=== PATIENT | female | born 1990 | race American Indian/Alaskan Native ===

== ENCOUNTER 2016-10-31 21:05 | Outpatient (CLI) | payer MEDICAID ==
[2016-10-31 23:29] VITALS: BP 103/58
[2016-10-31] MEDS ORDERED: LACTATED RINGERS 1,000 ML ONE (23:40)
[2016-10-31] MEDS ORDERED: LACTATED RINGERS 500 ML IV ONE (23:42)
[2016-11-01] MEDS ORDERED: BENADRYL IV ONE (00:04)
[2016-11-01 00:33] LABS: Bilirubin,Urine NEG (Negative); Blood,Urine NEG (Negative); Ketones,Urine 80 mg/dL (Negative); Leukocyte Esterase,Urine NEG (Negative); Mucus,Urine 2+ /HPF; Nitrite,Urine NEG (Negative); Protein,Urine <15 mg/dL mg/dL (Negative); Urobilinogen,Urine < 2.0 mg/dL (<2.0)
== END 2016-11-01 01:40 | disposition home or self-care (01) ==
LOC: TRG 21:05
PROVIDERS: ATTEND Obstetrics & Gynecology
DX: Z34.82 Encounter for supervision of other normal pregnancy, second trimester (principal); R10.9 Unspecified abdominal pain; L29.9 Pruritus, unspecified; Z3A.26 26 weeks gestation of pregnancy
CPT/HCPCS: 59025; 81001; 96360; J1200; J7120

== ENCOUNTER 2017-01-03 12:33 | Outpatient (CLI) | payer MEDICAID ==
[2017-01-03 13:18] VITALS: BP 121/74
[2017-01-03] MEDS ORDERED: LACTATED RINGERS 500 ML IV ONE (14:00)
[2017-01-03 15:08] LABS: Urine Drugs of Abuse Note Disclamer
[2017-01-03 15:38] LABS: Bacteria,Urine 1+ /HPF (Negative); Bilirubin,Urine NEG (Negative); Blood,Urine SM (Negative); Ketones,Urine NEG (Negative); Leukocyte Esterase,Urine NEG (Negative); Mucus,Urine FEW /HPF; Nitrite,Urine NEG (Negative); Protein,Urine <15 mg/dL mg/dL (Negative); Urobilinogen,Urine < 2.0 mg/dL (<2.0); WBC,Urine < 1.0 /HPF (0.0-6.0)
[2017-01-03] MEDS ORDERED: LACTATED RINGERS 1,000 ML ONE (16:36)
== END 2017-01-03 17:38 | disposition home or self-care (01) ==
LOC: TRG 12:33
PROVIDERS: ATTEND Obstetrics & Gynecology
DX: O47.03 False labor before 37 completed weeks of gestation, third trimester (principal); Z3A.32 32 weeks gestation of pregnancy
CPT/HCPCS: 59025; 80307; 81001; 87086; 96360; 96361; J7120

== ENCOUNTER 2017-02-24 09:53 | Inpatient (IN) | payer MEDICAID ==
--- NOTE | 2017-02-17 13:41 | History and Physical Report ---
History of Present Illness Date of examination: 02/17/17 Date of admission: 02/24/17 Chief complaint: repeat cs History of present illness: Pt here for repeat c/s. All risk, benefits and alternatives were d/w pt and questions were addressed and answered. Consents were signed and placed on the chart. OB Intake Ethnicity: Vital Signs Height: 62 in. Weight (lb): 179 BMI: 32.8 Pre- Weight: 179 BP: 112/ 68 mm Hg Ur. Protein: Negative Ur. Glucose: Negative Chief Complaint/Current Status: c/o missed period.................igarcia lmp 05/24/2016 Menstrual History Regularity: regular Menses every: 28 days Duration: 5 LMP: 05/24/2016 LMP reliability: definite LMP character: normal test type: urine test Date: 07/20/2016 BC at conception: none Planned ? no EDC Calculations LMP: 02/28/2017 EDC Confirmation: 02/28/2017 Gestational Age: 8 1/7 weeks Past History : 3 Term Births: 2 Premature Births: 0 Living Children: 2 Para: 2 Mult. Births: 0 Prev : 2 Prev. attempt? 0 Aborta: 0 Elect. Ab: 0 Spont. 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 of genital herpes: no Genetic History Congenital Heart Defect: Mom: no Dad: no Arnel Disease: Mom: no Dad: no Thalassemia Mom: no Dad: no Neural Tube Defect Mom: no Dad: no Down's Syndrome Mom: no Dad: no Toan-Sachs Mom: no Dad: no Sickle Cell Disease/Trait Mom: no Dad: no Hemophilia Mom: no Dad: no Muscular Dystrophy Mom: no Dad: no Cystic Fibrosis Mom: no Dad: no Vinod Chorea Mom: no Dad: no Mental Retardation Mom: no Dad: no Fragile X Mom: no Dad: no Other Genetic/Chromosomal Disorder Mom: no Dad: no Child w/other defect Mom: no Dad: no Active Medications (reviewed today): FORMULA 27-1 MG ORAL TABS ( VIT-FE FUMARATE-FA) 1 po q day as directed Current Allergies (reviewed today): No known allergies Past History Past Medical History: other (see hpi) Past Surgical History: other (see hpi) 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) Social history: other (see hpi) - Obstetrical History Expected Date of Delivery: 02/28/17 Actual Gestation: 39 Week(s) 3 Day(s) : 3 Para: 2 Medications and Allergies Allergies Allergy/AdvReac Type Severity Reaction Status Date / Time codeine Allergy Hives Verified 01/03/17 13:20 metronidazole [From Flagyl] Allergy Hives Verified 02/15/16 00:58 Home Medications Medication Instructions Recorded Confirmed Last Taken Type Vit No.130/Iron/FA 1 each PO DAILY 01/03/17 01/03/17 1 Day Ago History [ Tablet] Review of Systems All systems: negative - Physical Exam Cardiovascular: Normal S1, Normal S2 Lungs: Positive: Clear to auscultation, Normal air movement Abdomen: Positive: normal appearance, soft. Negative: distention, tenderness, guarding Genitourinary (Female): Positive: other (deferred) - Obstetrical FHR: auscultation normal Results All other labs normal. Assessment and Plan - Patient Problems (1) 39 weeks gestation of Status: Acute (2) Previous delivery affecting Status: Acute Plan to address problem: -admit and prepare for c/s -consents signed and placed on the chart
[~2017-02-24 09:53] MED LIST: BICITRA PO ONE; LACTATED RINGERS 1,000 ML IV SCH; PITOCin/NS 20 UNIT/1000ML DRIP 20 UNITS/1,000 ML BAG IV SCH
[2017-02-24] MEDS ORDERED: REGLAN IV ONE (10:30)
[2017-02-24] MEDS ORDERED: PEPCID IV ONE (10:30)
[2017-02-24] MEDS ORDERED: ANCEF/STERILE WATER 2 GM/20 ML 2 GM/20 ML SYRINGE IV NR (10:30)
[2017-02-24 10:46] LABS: Basophils % (Auto) 0.3 % (0.0-1.8); Eosinophils % (Auto) 0.5 % (0.0-4.3); Hematocrit 31.8 % (30.3-42.9); Hemoglobin 10.2 gm/dl (10.1-14.3); Mean Corpuscular HGB Conc 32 % (30-34); Mean Corpuscular Volume 73 fl (79-97); Platelet Count 302 K/mm3 (140-440); Red Blood Count 4.34 M/mm3 (3.65-5.03)
[2017-02-24] MEDS ORDERED: BICITRA ONE (10:46)
[2017-02-24] MEDS ORDERED: LACTATED RINGERS 1,000 ML ONE (10:46)
[2017-02-24 10:48] LABS: Mean Corpuscular Hemoglobin 23 pg (28-32)
[2017-02-24] MEDS ORDERED: LACTATED RINGERS 1,000 ML IV SCH (11:00)
[2017-02-24] MEDS ORDERED: BICITRA PO ONE (11:00)
--- NOTE | 2017-02-24 11:28 | Anesthesia Consultation ---
Anesthesia Consult and Med Hx Date of service: 02/24/17 - Airway Anesthetic Teeth Evaluation: Good ROM Head & Neck: Adequate Mental/Hyoid Distance: Adequate Mallampati Class: Class II Intubation Access Assessment: Probably Good - Pre-Operative Health Status ASA Pre-Surgery Classification: ASA2 Proposed Anesthetic Plan: Epidural, Spinal - Pulmonary Hx Asthma: No COPD: No Hx Pneumonia: No - Cardiovascular System Hx Hypertension: No Hx Heart Attack/AMI: No Hx Pacemaker: No Hx Internal Defibrillator: No - Central Nervous System Hx Seizures: No Hx Psychiatric Problems: No - Endocrine Hx Renal Disease: No Hx End Stage Renal Disease: No Hx Liver Disease: No Hx Hypothyroidism: No Hx Hyperthyroidism: No - Hematic Hx Anemia: No Hx Sickle Cell Disease: No - Other Systems Hx Alcohol Use: No
--- NOTE | 2017-02-24 11:29 | Anesthesia Day of Surgery ---
Anesthesia Day of Surgery - Day of Surgery Patient Examined: Yes Patient H&P Reviewed: Yes Patient is NPO: Yes
[2017-02-24] MEDS ORDERED: MORPHINE ONE (11:33)
[2017-02-24] MEDS ORDERED: WATER FOR IRRIG STERILE IR ONE (11:50)
[2017-02-24] MEDS ORDERED: NACL 0.9% IR ONE (11:50)
[2017-02-24] MEDS ORDERED: ePHEDrine SULFATE ONE (11:56)
[2017-02-24] MEDS ORDERED: BENADRYL IV PRN (12:00)
[2017-02-24] MEDS ORDERED: ZOFRAN IV PRN (12:00)
[2017-02-24] MEDS ORDERED: NARCAN 0.4 MG/1 ML IV PRN (12:00)
[2017-02-24] MEDS ORDERED: NACL 0.9% 1000 ML 1,000 ML ONE (12:03)
[2017-02-24] MEDS ORDERED: ZOFRAN ONE (12:21)
[2017-02-24] MEDS ORDERED: DILAUDID IV PRN (12:30)
[2017-02-24] MEDS ORDERED: PHENERGAN PO PRN (12:30)
[2017-02-24] MEDS ORDERED: PHENERGAN PR PRN (12:30)
[2017-02-24] MEDS ORDERED: SODIUM CHLORIDE FLUSH SYRINGE 10 ML IV PRN (12:30)
--- NOTE | 2017-02-24 12:51 | Operative Report ---
Operative Report Operative Report: Date of procedure: 02/24/2017 Pre-operative diagnosis: 39 weeks gestation Previous section 2 Post-operative diagnosis: Same Procedure name(s): Repeat low transverse section via Pfannenstiel skin incision Surgeon: Dr. Rivers Art Psychotherapist Or Therapist: Layne VICK Roland Anesthesia: Combined spinal epidural EBL: 500 mL Urine output: 250 mL of clear urine Fluids: 1300 mL Findings: Liveborn female Apgars of 8 and 8 at one and 5 minutes weight 6 lbs. 0 oz. Grossly normal fallopian tubes and ovaries bilaterally Minimal scar tissue noted from previous section Indications: Patient presents for scheduled repeat section. All risk benefits and alternatives were discussed with the patient. Consents were signed and placed on the chart. Procedure: Patient was taking to the operating room. Patient was then prepped and draped in sterile fashion after anesthesia was found to be adequate. A low transverse skin incision was made with the scalpel through previous incisional scar and carried down to the underlying layer of fascia with the Bovie. The fascia was then incised in the midline and this incision was extended bilaterally with the Bovie. The superior aspect of the fascia was grasped with Carmelo clamps tented upward and dissected off of the anterior rectus muscles with the scalpel. In similar fashion the inferior aspect of the fascia was grasped with Carmelo clamps tented upward and dissected off of the anterior rectus muscles. The rectus muscles were then bluntly divided in the midline. The peritoneum was identified and entered into sharply. The bladder blade was replaced. A lower transverse uterine incision was made with the scalpel and extended bilaterally with the bandage scissors. Artificial rupture of membranes was performed yielding clear amniotic fluid. The 's head was then delivered atraumatically. The anterior shoulder and rest of delivered without difficulty. There was a nuchal cord 1 was easily reduced. The umbilical cord was clamped x2. The cord was cut. The was then placed in sterile bassinet. Cord blood was collected The placenta was manually extracted in its entirety. The uterus was exteriorized and cleared of all clots and debris. The uterine incision was closed using 0 Vicryl in a running locking fashion. A second imbricating layer of the same suture was then created. The posterior cul-de-sac was copiously irrigated. The uterus was returned to the abdomen. Tisseel was placed along the uterine incision with excellent hemostasis noted. The gutters were also irrigated. The anterior rectus muscles were reapproximated using 3-0 Vicryl. The anterior rectus fascia was reapproximated using 0 Vicryl in a running fashion. The subcuticular fat was reapproximated using 2-0 Vicryl in a running fashion. The skin was reapproximated with 4-0 Monocryl with a subcuticular stitch. The patient tolerated the procedure well. Sponge lap and needle counts were all correct x3. Patient was taken to the recovery room awake and in stable condition.
[2017-02-24] MEDS ORDERED: MYLICON PO PRN (12:53)
[2017-02-24] MEDS ORDERED: LANSINOH TP PRN (12:53)
[2017-02-24] MEDS ORDERED: NORCO 5/325 PO PRN (12:53)
[2017-02-24] MEDS ORDERED: BENADRYL IV ONE (16:14)
[2017-02-24] MEDS ORDERED: D5LR 1,000 ML IV SCH (19:00)
[2017-02-24] MEDS: ANCEF/NS 1 GM/50 ML 1 GM/50 ML BAG IV SCH (19:57)
[2017-02-24] MEDS ORDERED: BENADRYL PO NR (21:00)
--- NOTE | 2017-02-24 22:44 | Post Anesthesia Evaluation ---
- Post Anesthesia Evaluation Patient Participated: Yes Airway Patent: Yes Stable Respiratory Function: Yes Temp > 96.8F: Yes Pain Manageable: Yes Adequeate Hydration: Yes Anesthesia Complications: No Block Receding Appropriately: Yes
[2017-02-25 02:12] LABS: Hematocrit 28.1 % (30.3-42.9); Hemoglobin 9.2 gm/dl (10.1-14.3)
[2017-02-25] MEDS: ANCEF/NS 1 GM/50 ML 1 GM/50 ML BAG IV SCH (03:31)
[2017-02-25] MEDS: MOTRIN PO PRN ×4 (03:40→21:50)
[2017-02-25] MEDS ORDERED: BENADRYL PO PRN (05:26)
--- NOTE | 2017-02-25 05:54 | Event Note ---
Date: 02/25/17 (called by RN on PP) pt states [place] is not working Asked for Percocet by name. Question codeine allergy. Pt again requested Percocet. Order in chart
[2017-02-25] MEDS ORDERED: BOOSTRIX IM ONE (06:00)
--- NOTE | 2017-02-25 08:00 | Progress Note ---
Assessment and Plan Patient doing well, reports pain well controlled with po meds. Lochia scant, incision D&I, VSSAF, H&H 9.2/28.1 (asymptomatic, anemia d/t blood loss acute). Continue current postop pathway, anticipate d/c home tomorrow if stable. - Patient Problems (1) Anemia due to acute blood loss Current Visit: Yes Status: Acute Plan to address problem: Asymptomatic Continue PNV (2) delivery delivered Current Visit: Yes Status: Acute Subjective - Subjective Date of service: 02/25/17 Principal diagnosis: postop day #1 s/p repeat c/s Patient reports: appetite normal, voiding normally, pain well controlled, ambulating normally, no dizzy ambulation, no flatus, no nauseated [place]: doing well, nursing well Objective - Vital Signs Latest vital signs: Vital Signs Temp Pulse Resp BP BP 02/25/17 06:51 98.3 F 90 24 115/60 02/25/17 04:04 98.5 F 87 24 116/65 02/25/17 03:40 18 02/24/17 23:13 98.8 F 86 24 116/63 02/24/17 20:04 18 02/24/17 16:46 97.8 F 83 20 140/78 02/24/17 12:59 97.7 F 02/24/17 12:33 119 H 96/65 02/24/17 10:23 98.2 F 88 16 02/24/17 10:08 102 H 122/76 Intake and Output 02/24/17 02/25/17 02/25/17 22:59 06:59 14:59 Intake Total 50 960 Output Total 900 Balance 50 60 Intake: IV 50 ANCEF/NS 1 GM/50 ML 1 gm 50 In 50 ml @ 100 mls/hr IV Q8H [facility] Rx#:[id number] Oral 960 Output: Urine 900 Void 900 Other: Total, Intake Amount 720 Total, Output Amount 900 # Voids Void 1 - Exam Breasts: Present: normal, Cardiovascular: Present: Regular rate Lungs: Present: Clear to auscultation, Normal air movement Abdomen: Present: normal appearance, soft Uterus: Present: normal, firm, fundal height at umbilicus Extremities: Present: normal Incision: Present: normal, dry, intact - Labs Labs: Abnormal lab results 02/24/17 02/25/17 Range/Units 10:00 00:38 Hgb 9.2 L (10.1-14.3) gm/dl Hct 28.1 L (30.3-42.9) % MCV 73 L (79-97) fl MCH 23 L (28-32) pg RDW 16.0 H (13.2-15.2) % [place] % (Auto) 8.4 H (0.0-7.3) %
[2017-02-25] MEDS: PERCOCET 5/325 PO PRN ×3 (09:40→21:51)
[2017-02-25] MEDS: MILK OF MAGNESIA PO PRN (12:49)
[2017-02-25] MEDS: FEOSOL PO SCH (12:49)
--- NOTE | 2017-02-25 13:14 | Progress Note ---
Subjective Date of service: 02/25/17 Principal diagnosis: postop day #1 s/p repeat c/s Interval history: patient resting comfortably in bed. up ambulating. no anesthetic complications noted. Objective - Constitutional Vitals: Vital Signs - 12hr 02/25/17 02/25/17 02/25/17 03:40 04:04 06:51 Temperature 98.5 F 98.3 F Pulse Rate 87 90 Respiratory 18 24 24 Rate Blood Pressure 116/65 115/60 [Right] 02/25/17 08:00 Temperature 98.1 F Pulse Rate 67 Respiratory 18 Rate Blood Pressure 101/58 [Right] - Labs CBC & Chem 7: 02/25/17 00:38 Labs: Abnormal lab results 02/25/17 Range/Units 00:38 Hgb 9.2 L (10.1-14.3) gm/dl Hct 28.1 L (30.3-42.9) %
[2017-02-26] MEDS: MOTRIN PO PRN ×3 (08:05→23:57)
[2017-02-26] MEDS: FEOSOL PO SCH (08:06)
[2017-02-26] MEDS: PERCOCET 5/325 PO PRN ×3 (08:09→23:57)
--- NOTE | 2017-02-26 08:09 | Progress Note ---
Assessment and Plan - Patient Problems (1) delivery delivered Onset Date: 02/24/17 Current Visit: Yes Status: Acute Plan to address problem: pt w/o complaint resting feeding NB VSS FF below umb Lochia small Incision D&I H &H 06/02 drop r/t blood loss from surgery Pt w/o s/sx of anemia. Doing well s/p repeat c/s P: continue pathway Adv as tolerated Plan d/c tomorrow Subjective - Subjective Date of service: 02/26/17 (pt w/o complaint) Principal diagnosis: postop day #2 s/p repeat c/s Patient reports: appetite normal, voiding normally, pain well controlled, ambulating normally Owen: doing well (bili lights) Objective - Vital Signs Latest vital signs: Vital Signs Temp Pulse Resp BP 02/26/17 00:00 97.9 F 74 18 110/63 02/25/17 16:45 97.9 F 83 20 123/73 02/25/17 12:25 98.2 F 93 H 20 112/72 Intake and Output 02/25/17 02/26/17 02/26/17 22:59 06:59 14:59 Intake Total 480 Output Total 600 Balance -120 Intake: Oral 480 Output: Urine 600 Void 600 Other: Total, Intake Amount 480 Total, Output Amount 600 Voiding Method Toilet - Exam Breasts: Present: normal Cardiovascular: Present: Regular rate Lungs: Present: Clear to auscultation Abdomen: Present: normal appearance, soft, normal bowel sounds Vulva: both: normal Uterus: Present: normal, firm, fundal height below umbilicus Extremities: Present: normal Deep Tendon Reflex Grade: Normal +2 Incision: Present: dry, intact
[2017-02-26] MEDS ORDERED: ZOFRAN ODT PO PRN (10:06)
[2017-02-27] MEDS: PERCOCET 5/325 PO PRN (06:35)
[2017-02-27] MEDS: MOTRIN PO PRN ×2 (06:35→12:02)
[2017-02-27] MEDS: MILK OF MAGNESIA PO PRN (08:25)
[2017-02-27] MEDS: FEOSOL PO SCH (08:25)
--- NOTE | 2017-02-27 09:10 | Discharge Summary ---
Providers - Providers Date of Admission: 02/24/17 09:53 Date of discharge: 02/27/17 (pt agrees with d/c) Attending physician: GABRIEL ALVAREZ Primary care physician: GABRIEL ALVAREZ Hospitalization Reason for admission: section Delivery: Procedure: repeat low transverse Episiotomy: none Laceration: none Incision: normal, dry, intact Other procedures: none complications: none Discharge diagnosis: IUP at term delivered [place] baby: female Hospital course: uncomplicated repeat section Pt w/o complaint VSS FF below umb Lochia scant Incision D&I Pt is asymptomatic anemia. Doing well s/p section. P: d/c today with instructions RTO 1 week postop care. Condition at discharge: Good Disposition: DC-01 TO HOME OR SELFCARE - Discharge Diagnoses (1) delivery delivered Status: Acute Comment: rto 1 week postop care Plan - Discharge Medications Prescriptions: Docusate Sodium [Colace] 100 mg PO BID PRN #60 capsule PRN Reason: Constipation Ferrous Sulfate [Feosol 325 MG tab] 325 mg PO QDAY #30 tablet Ibuprofen [Motrin 800 MG tab] 800 mg PO Q8HR PRN #30 tablet PRN Reason: Pain Lidocain2.5%/Prilocai2.5% [Emla] 2 gm TP ONCE #1 tube oxyCODONE /ACETAMINOPHEN [Percocet 5/325] 1 tab PO Q4HR #30 tab - Provider Discharge Summary Activity: routine, no sex for 6 weeks, no heavy lifting 4 weeks, no strenuous exercise Diet: routine Instructions: routine Additional instructions: [] Smoking cessation referral if applicable(refer to patient education folder for contact #) [] Refer to [facility] Booklet Call your doctor immediately for: * Fever > 100.5 * Heavy vaginal bleeding ( >1 pad per hour) * Severe persistent headache * Shortness of breath * Reddened, hot, painful area to leg or breast * Drainage or odor from incision. * Keep incision clean and dry at all times and follow doctor's instructions regarding bathing/showering - Follow up plan Follow up: GABRIEL ALVAREZ MD [Primary Care Provider] - 7 Days (Congratulations! Please call [phone] to schedule your postoperative visit in 1 week. Take medications as prescribed. Call with concerns.)
[2017-02-27 14:36] VITALS: BP 118/86
== END 2017-02-27 13:20 | disposition home or self-care (01) | DRG 765 ==
LOC: APU 09:53 → OB 14:21
PROVIDERS: ADMIT Obstetrics & Gynecology; ATTEND Obstetrics & Gynecology
PROC: 10D00Z1 Extraction of Products of Conception, Low, Open Approach (ICD-10-PCS; 2017-02-24)
PROC: 10907ZC Drainage of Amniotic Fluid, Therapeutic from Products of Conception, Via Natural or Artificial Opening (ICD-10-PCS; 2017-02-24)
PROC: 3E0234Z Introduction of Serum, Toxoid and Vaccine into Muscle, Percutaneous Approach (ICD-10-PCS; principal; 2017-02-25)
DX: O34.211 Maternal care for low transverse scar from previous cesarean delivery (principal); D62 Acute posthemorrhagic anemia; Z3A.39 39 weeks gestation of pregnancy; O99.02 Anemia complicating childbirth; O69.81X0 Labor and delivery complicated by cord around neck, without compression, not applicable or unspecified; Z88.5 Allergy status to narcotic agent; Z23 Encounter for immunization; Z37.0 Single live birth; Z88.8 Allergy status to other drugs, medicaments and biological substances
CPT/HCPCS: 36415; 85014; 85018; 85025; 86850; 86900; 86901; 99211; A6250; C9250; G0463; J0690; J1200; J2270; J2405; J2590; J2765; J7030; J7120; J7121; Q0162

== ENCOUNTER 2017-03-29 04:03 | Emergency (ER) | payer MEDICAID ==
[2017-03-29 04:21] VITALS: BP 155/101
[2017-03-29 04:43] LABS: Basophils % (Auto) 0.4 % (0.0-1.8); Eosinophils % (Auto) 1.8 % (0.0-4.3); Hematocrit 33.1 % (30.3-42.9); Hemoglobin 10.9 gm/dl (10.1-14.3); Mean Corpuscular HGB Conc 33 % (30-34); Mean Corpuscular Volume 74 fl (79-97); Platelet Count 290 K/mm3 (140-440); Red Blood Count 4.47 M/mm3 (3.65-5.03); White Blood Count 10.1 K/mm3 (4.5-11.0)
[2017-03-29 04:48] LABS: Mean Corpuscular Hemoglobin 24 pg (28-32)
[2017-03-29 05:03] LABS: Anion Gap 17 mmol/L; BUN/Creatinine Ratio 17.14; Blood Urea Nitrogen 12 mg/dL (7-17); Calcium 8.5 mg/dL (8.4-10.2); Carbon Dioxide 25 mmol/L (22-30); Chloride 100.8 mmol/L (98-107); Glucose 95 mg/dL (65-100); Potassium 3.8 mmol/L (3.6-5.0); Sodium 139 mmol/L (137-145)
== END 2017-03-29 04:50 | disposition left against medical advice (07) ==
LOC: ED 04:03
DX: R07.89 Other chest pain (principal); Z53.21 Procedure and treatment not carried out due to patient leaving prior to being seen by health care provider
CPT/HCPCS: 36415; 80048; 84484; 85025; 93005; 93010

== ENCOUNTER 2017-03-29 13:43 | Emergency (ER) | payer MEDICAID ==
[2017-03-29 13:56] VITALS: BP 130/85
[2017-03-29 14:30] LABS: Basophils % (Auto) 0.1 % (0.0-1.8); Eosinophils % (Auto) 2.1 % (0.0-4.3); Hemoglobin 10.7 gm/dl (10.1-14.3); Mean Corpuscular HGB Conc 32 % (30-34); Mean Corpuscular Volume 75 fl (79-97); Platelet Count 302 K/mm3 (140-440); Red Blood Count 4.52 M/mm3 (3.65-5.03); Red Cell Distribution Width 17.6 % (13.2-15.2); White Blood Count 8.7 K/mm3 (4.5-11.0)
[2017-03-29 14:39] LABS: INR 1.03 (0.87-1.13)
[2017-03-29 14:45] LABS: Mean Corpuscular Hemoglobin 24 pg (28-32)
[2017-03-29 14:46] LABS: Anion Gap 18 mmol/L; Blood Urea Nitrogen 11 mg/dL (7-17); Calcium 8.8 mg/dL (8.4-10.2); Carbon Dioxide 26 mmol/L (22-30); Glucose 97 mg/dL (65-100); Potassium 3.7 mmol/L (3.6-5.0); Sodium 142 mmol/L (137-145)
[2017-03-29 14:49] LABS: Partial Thromboplastin Time 31.5 Sec. (24.2-36.6)
--- NOTE | 2017-03-29 16:26 | Emergency Department Report ---
Chief Complaint: Chest Pain Stated Complaint: CHEST PAINS/NUMBNESS IN ARM/NECK/JAW/SOB Time Seen by Provider: 03/29/17 16:23 - HPI History of Present Illness: PT c/o chest pain, onset last night. PT states she started having chest pain last night. PT states she is 3 weeks and she breast feeding. - ROS Review of Systems: - fever -chill - n/v - breast pain - Exam Vital Signs: Vital Signs 03/29/17 13:53 Temperature 98.7 F Pulse Rate 88 Respiratory 18 Rate Blood Pressure 130/85 O2 Sat by Pulse 100 Oximetry Physical Exam: PT looks well, non toxic. steady gait gcs 15 chest wall non tender rrr MSE screening note: Focused history and physical exam performed. Due to findings the following was ordered: cxr ED Medical Decision Making - Lab Data Result diagrams: 03/29/17 14:15 03/29/17 14:15 ED Disposition for MSE Condition: Stable Referrals: PRIMARY CARE, [Primary Care Provider] - 3-5 Days
--- NOTE | 2017-03-29 17:53 | Emergency Department Report ---
ED Chest Pain HPI - General Chief Complaint: Chest Pain Stated Complaint: CHEST PAINS/NUMBNESS IN ARM/NECK/JAW/SOB Time Seen by Provider: 03/29/17 16:23 Source: patient Mode of arrival: Ambulatory Limitations: No Limitations - History of Present Illness Initial Comments: Patient is exposed . That she started having left-sided chest pain sharp in nature that increases with movement. Denies shortness of breath or cough MD Complaint: chest pain -: Last night Onset: during rest Pain Location: left chest Severity: moderate Quality: sharp Consistency: intermittent Improves With: nothing Worsens With: movement re: denies: nausea, vomting, dyspnea Other Symptoms: denies: cough, fever - Related Data Home Medications Medication Instructions Recorded Confirmed Last Taken Vit No.130/Iron/FA 1 each PO DAILY 01/03/17 02/25/17 1 Day Ago [ Tablet] Previous Rx's Medication Instructions Recorded Last Taken Type Docusate Sodium [Colace] 100 mg PO BID PRN #60 capsule 02/24/17 Unknown Rx Ferrous Sulfate [Feosol 325 MG tab] 325 mg PO QDAY #30 tablet 02/24/17 Unknown Rx Ibuprofen [Motrin 800 MG tab] 800 mg PO Q8HR PRN #30 tablet 02/24/17 Unknown Rx Lidocain2.5%/Prilocai2.5% [Emla] 2 gm TP ONCE #1 tube 02/24/17 Unknown Rx oxyCODONE /ACETAMINOPHEN [Percocet 1 tab PO Q4HR #30 tab 02/24/17 Unknown Rx 5/325] Naproxen [Naprosyn] 500 mg PO BID #14 tablet 03/29/17 Unknown Rx Allergies Allergy/AdvReac Type Severity Reaction Status Date / Time codeine Allergy Hives Verified 01/03/17 13:20 metronidazole [From Flagyl] Allergy Hives Verified 02/15/16 00:58 Heart Score - HEART Score History: Slightly suspicious EKG: Non-specific Age: < 45 Risk factors: No known risk factors Troponin: < normal limit HEART Score: 1 - Critical Actions Critical Actions: 0-3 pts:0.9-1.7%risk of adverse cardiac event.Candidate for discharge ED Review of Systems ROS: Stated complaint: CHEST PAINS/NUMBNESS IN ARM/NECK/JAW/SOB Other details as noted in HPI Comment: All other systems reviewed and negative Constitutional: denies: chills, fever Respiratory: denies: cough, shortness of breath, SOB with exertion Cardiovascular: chest pain. denies: palpitations, edema, paroxysmal nocturnal dyspnea Gastrointestinal: denies: abdominal pain Neurological: denies: headache, numbness ED Past Medical Hx - Past Medical History Previous Medical History?: Yes Hx Hypertension: No Hx CVA: No Hx Heart Attack/AMI: No Hx Congestive Heart Failure: No Hx Diabetes: No Hx Deep Vein Thrombosis: No Hx Pulmonary Embolism: No Hx GERD: No Hx Liver Disease: No Hx Renal Disease: No Hx Sickle Cell Disease: No Hx Arthritis: No Hx Headaches / Migraines: No Hx Seizures: No Hx Kidney Stones: No Hx Psychiatric Treatment: No Hx Asthma: No Hx COPD: No Hx Tuberculosis: No Hx Dementia: No Hx HIV: No - Surgical History Past Surgical History?: Yes Hx Coronary Stent: No Hx Open Heart Surgery: No Hx Pacemaker: No Hx Internal Defibrillator: No Hx Cholecystectomy: No Hx Appendectomy: No Hx Breast Surgery: No Additional Surgical History: x3 - Social History Smoking Status: Never Smoker Substance Use Type: None - Medications Home Medications: Home Medications Medication Instructions Recorded Confirmed Last Taken Type Vit No.130/Iron/FA 1 each PO DAILY 01/03/17 02/25/17 1 Day Ago History [ Tablet] Docusate Sodium [Colace] 100 mg PO BID PRN #60 capsule 02/24/17 Unknown Rx Ferrous Sulfate [Feosol 325 MG tab] 325 mg PO QDAY #30 tablet 02/24/17 Unknown Rx Ibuprofen [Motrin 800 MG tab] 800 mg PO Q8HR PRN #30 tablet 02/24/17 Unknown Rx Lidocain2.5%/Prilocai2.5% [Emla] 2 gm TP ONCE #1 tube 02/24/17 Unknown Rx oxyCODONE /ACETAMINOPHEN [Percocet 1 tab PO Q4HR #30 tab 02/24/17 Unknown Rx 5/325] Naproxen [Naprosyn] 500 mg PO BID #14 tablet 03/29/17 Unknown Rx ED Physical Exam - General Limitations: No Limitations General appearance: alert, in no apparent distress - ENT ENT exam: Present: normal exam - Neck Neck exam: Present: normal inspection. Absent: tenderness, lymphadenopathy, thyromegaly - Respiratory Respiratory exam: Present: normal lung sounds bilaterally, chest wall tenderness (left upper chest tenderness). Absent: respiratory distress, wheezes , rales, rhonchi - Cardiovascular Cardiovascular Exam: Present: regular rate, normal rhythm, normal heart sounds - GI/Abdominal GI/Abdominal exam: Present: soft. Absent: distended, tenderness, guarding, rebound - Neurological Exam Neurological exam: Present: alert, oriented X3, CN II-XII intact - Skin Skin exam: Present: warm, intact ED Course Vital Signs 03/29/17 13:53 Temperature 98.7 F Pulse Rate 88 Respiratory 18 Rate Blood Pressure 130/85 O2 Sat by Pulse 100 Oximetry - Reevaluation(s) Reevaluation #1: 03/29/17 18:54 Patient stated that she is doing much better and she is ready to go home she does not have any chest pain at this moment. ED Medical Decision Making - Lab Data Result diagrams: 03/29/17 14:15 03/29/17 14:15 Critical care attestation.: If time is entered above; I have spent that time in minutes in the direct care of this critically ill patient, excluding procedure time. ED Disposition Clinical Impression: Atypical chest pain, Costochondritis, acute Disposition: DC-01 TO HOME OR SELFCARE Is pt being admited?: No Does the pt Need Aspirin: No Condition: Stable Instructions: Chest Pain (ED) Prescriptions: Naproxen [Naprosyn] 500 mg PO BID #14 tablet Referrals: PRIMARY CARE, [Primary Care Provider] - 3-5 Days
--- NOTE | 2017-03-30 07:34 | XRay Report ---
ROUTINE CHEST, TWO VIEWS: HISTORY: chest pain. The trachea, heart, mediastinal contour, lung mcdonald and bony thorax are unremarkable. IMPRESSION: Unremarkable chest x-ray.
== END 2017-03-29 19:33 | disposition home or self-care (01) ==
LOC: ED 13:43
DX: M94.0 Chondrocostal junction syndrome [Tietze] (principal); R07.89 Other chest pain; Z88.5 Allergy status to narcotic agent; Z88.8 Allergy status to other drugs, medicaments and biological substances
CPT/HCPCS: 36415; 71020; 80048; 83880; 84484; 85025; 85610; 85730; 93005; 93010

== ENCOUNTER 2018-04-28 06:22 | Emergency (ER) | payer MEDICAID ==
--- NOTE | 2018-04-28 07:06 | Emergency Department Report ---
ED Female HPI - General Chief complaint: Abdominal Pain Stated complaint: POSS MISCARRIAGE Time Seen by Provider: 04/28/18 06:56 Source: patient Mode of arrival: Stretcher Limitations: No Limitations - History of Present Illness Initial comments: Patient is a 28-year-old female presents emergency room with complaints of abdominal pain, pelvic pain, vaginal bleeding and passing of clots and tissue. Patient states she is 11 weeks and received a call from her DOUGHMAKER that her ultrasound shows having a miscarriage. Patient's DOUGHMAKER gave her an pill which has caused her to have intense pain at 10 out of 10. Patient states she went last night to [facility] and had an ultrasound which showed retained products of conception. Patient was given was given Percocets by the ER, however patient is still having a 10 out of 10 pain even with the Percocet on board. Patient states she is not able to do anything to reduce her pain at all. Patient states that nothing is making the pain worse or better. Since being seen in ER last night, patient's pain has worsened and vaginal bleeding and passing of clots and tissue has increased. She denies fever and chills. Patient denies chest pain shortness of breath. Patient states the pain is nonradiating. MD Complaint: vaginal bleeding, pelvic pain -: Sudden Location: suprapubic Radiation: non-radiating Severity: severe Severity scale (0 -10): 10 Quality: sharp, stabbing Consistency: constant Improves with: none Worsens with: none Are you Now?: Yes Associated Symptoms: vaginal bleeding, abdominal pain. denies: nausea/vomiting , fever/chills, headaches, loss of appetite, dysuria, hematuria, rash, seizure, shortness of breath, syncope, weakness - Related Data Sexually active: No Home Medications Medication Instructions Recorded Confirmed Last Taken Vit No.130/Iron/Folic 1 each PO DAILY 01/03/17 02/25/17 1 Day Ago [ Tablet] ~01/02/17 Previous Rx's Medication Instructions Recorded Last Taken Type Docusate Sodium [Colace] 100 mg PO BID PRN #60 capsule 02/24/17 Unknown Rx Ferrous Sulfate [Feosol 325 MG tab] 325 mg PO QDAY #30 tablet 02/24/17 Unknown Rx Ibuprofen [Motrin 800 MG tab] 800 mg PO Q8HR PRN #30 tablet 02/24/17 Unknown Rx Lidocain2.5%/Prilocai2.5% [Emla] 2 gm TP ONCE #1 tube 02/24/17 Unknown Rx oxyCODONE /ACETAMINOPHEN [Percocet 1 tab PO Q4HR #30 tab 02/24/17 Unknown Rx 5/325] Naproxen [Naprosyn] 500 mg PO BID #14 tablet 03/29/17 Unknown Rx Methylergonovine [Methergine] 0.2 mg PO Q8HR #3 tablet 04/28/18 Unknown Rx Allergies Allergy/AdvReac Type Severity Reaction Status Date / Time codeine Allergy Hives Verified 01/03/17 13:20 metronidazole [From Flagyl] Allergy Hives Verified 02/15/16 00:58 ED Review of Systems ROS: Stated complaint: POSS MISCARRIAGE Other details as noted in HPI Constitutional: denies: chills, fever Eyes: denies: eye pain, eye discharge, vision change ENT: denies: ear pain, throat pain Respiratory: denies: cough, shortness of breath, wheezing Cardiovascular: denies: chest pain, palpitations Endocrine: no symptoms reported Gastrointestinal: abdominal pain. denies: nausea, diarrhea Genitourinary: abnormal menses. denies: urgency, dysuria, discharge Musculoskeletal: denies: back pain, joint swelling, arthralgia Skin: denies: rash, lesions Neurological: denies: headache, weakness, paresthesias Psychiatric: denies: anxiety, depression Hematological/Lymphatic: denies: easy bleeding, easy bruising ED Past Medical Hx - Past Medical History Previous Medical History?: No Hx Hypertension: No Hx CVA: No Hx Heart Attack/AMI: No Hx Congestive Heart Failure: No Hx Diabetes: No Hx Deep Vein Thrombosis: No Hx Pulmonary Embolism: No Hx GERD: No Hx Liver Disease: No Hx Renal Disease: No Hx Sickle Cell Disease: No Hx Arthritis: No Hx Headaches / Migraines: No Hx Seizures: No Hx Kidney Stones: No Hx Psychiatric Treatment: No Hx Asthma: No Hx COPD: No Hx Tuberculosis: No Hx Dementia: No Hx HIV: No - Surgical History Past Surgical History?: Yes Hx Coronary Stent: No Hx Open Heart Surgery: No Hx Pacemaker: No Hx Internal Defibrillator: No Hx Cholecystectomy: No Hx Appendectomy: No Hx Breast Surgery: No Additional Surgical History: x3 - Family History Family history: no significant - Social History Smoking Status: Unknown if ever smoked Substance Use Type: None - Medications Home Medications: Home Medications Medication Instructions Recorded Confirmed Last Taken Type Vit No.130/Iron/Folic 1 each PO DAILY 01/03/17 02/25/17 1 Day Ago History [ Tablet] ~01/02/17 Docusate Sodium [Colace] 100 mg PO BID PRN #60 capsule 02/24/17 Unknown Rx Ferrous Sulfate [Feosol 325 MG tab] 325 mg PO QDAY #30 tablet 02/24/17 Unknown Rx Ibuprofen [Motrin 800 MG tab] 800 mg PO Q8HR PRN #30 tablet 02/24/17 Unknown Rx Lidocain2.5%/Prilocai2.5% [Emla] 2 gm TP ONCE #1 tube 02/24/17 Unknown Rx oxyCODONE /ACETAMINOPHEN [Percocet 1 tab PO Q4HR #30 tab 02/24/17 Unknown Rx 5/325] Naproxen [Naprosyn] 500 mg PO BID #14 tablet 03/29/17 Unknown Rx Methylergonovine [Methergine] 0.2 mg PO Q8HR #3 tablet 04/28/18 Unknown Rx ED Physical Exam - General Limitations: No Limitations ED Course Vital Signs 04/28/18 04/28/18 04/28/18 06:55 07:10 07:36 Temperature 98.1 F Pulse Rate 114 H Respiratory 18 18 Rate Blood Pressure Blood Pressure 178/109 [Right] O2 Sat by Pulse 100 100 100 Oximetry 04/28/18 04/28/18 04/28/18 07:46 08:00 08:16 Temperature Pulse Rate Respiratory Rate Blood Pressure 114/71 107/64 113/61 Blood Pressure [Right] O2 Sat by Pulse 98 100 99 Oximetry 04/28/18 04/28/18 04/28/18 09:05 09:30 09:46 Temperature Pulse Rate Respiratory Rate Blood Pressure 120/77 120/77 113/61 Blood Pressure [Right] O2 Sat by Pulse 100 100 100 Oximetry 04/28/18 04/28/18 04/28/18 10:00 10:16 11:00 Temperature Pulse Rate Respiratory Rate Blood Pressure 120/74 120/74 123/81 Blood Pressure [Right] O2 Sat by Pulse 100 98 99 Oximetry 04/28/18 04/28/18 04/28/18 12:00 12:48 13:00 Temperature Pulse Rate 99 H Respiratory Rate Blood Pressure 127/80 130/83 Blood Pressure [Right] O2 Sat by Pulse 99 99 Oximetry 04/28/18 14:00 Temperature Pulse Rate 101 H Respiratory Rate Blood Pressure Blood Pressure [Right] O2 Sat by Pulse Oximetry - Reevaluation(s) Reevaluation #1: Patient resting in bed. Consult DOUGHMAKER still pending 04/28/18 11:23 Reevaluation #2: Patient was seen by Dr. Garcia, DOUGHMAKER. Dr. Garcia did a pelvic exam and was able to remove products of conception from the cervical os. Dr. Garcia soon care and has a discharge patient home. See Dr. Garcia's notes for discharge instructions and follow-up care. Patient will be discharged home from the ER and given discharge instructions and ER precautions. Patient's vaginal bleeding has stopped since having the products removed. Patient's pain has completely resolved. Patient RT has Percocet at home and we instructed on how to take it. Patient has been given a prescription from Dr. Garcia. Patient states she feels better. Patient instructed to rest and avoid strenuous activity. Patient instructed to increase water intake and eat a regular diet. Patient also to take a vitamin. 04/28/18 13:51 We'll repeat CBC prior to discharge 04/28/18 13:57 - Consultations Consultation #1: Dr. Garcia consulted for admission. Dr. Garcia states she wants patient to have 0.2 Methergine IM 1 and she will come see the patient. Dr. Garcia to assume care 04/28/18 09:[address] Garcia's note 04/28/18 13:[address] Garcia again. Dr. Garcia clears patient for discharge. Dr. Garcia states she called in prescription directly to the [facility] outside the hospital 04/28/18 15:01 ED Medical Decision Making - Lab Data Result diagrams: 04/28/18 14:13 - Radiology Data Radiology results: report reviewed OB ultrasound: with bleeding. Endovaginal imaging demonstrates an anteverted uterus measuring 5.8 x 5.8 x 10.9 cm. No myometrial masses. The endometrial thickness is approximately 13.5 mm. The endometrium is diffusely inhomogeneous. In the lower uterine segment there is a thickened inhomogeneous complex measuring approximately 3.3 cm. Right ovary measures 2.2 cm and the left 1.9 cm. Both are unremarkable. Impressions: The findings are consistent with an incompletely aborted /hemorrhage. Transcribed By: CHRISSY Dictated By: SANDY ARENAS MD Electronically Authenticated By: SANDY ARENAS MD Signed Date/Time: 04/28/18 0905 - Medical Decision Making Patient is a 28-year-old female presents emergently with vaginal bleeding and severe pelvic pain. Patient found to be an incomplete . Patient was seen by DOUGHMAKER. DOUGHMAKER performed a pelvic exam and products removed in the ER and patient is stable for discharge from a DOUGHMAKER standpoint. Patient will be discharged home. CBC rechecked and hemoglobin is 9.7. Patient instructed to start vitamin. Results discussed with Dr. Garcia. Dr. Garcia thinks patient is stable to be discharged home. Patient will be discharged home with discharge instructions and return to ER precautions. - Differential Diagnosis incomplete . Vaginal bleeding. Pelvic pain. Abdominal pain. Critical care attestation.: If time is entered above; I have spent that time in minutes in the direct care of this critically ill patient, excluding procedure time. ED Disposition Clinical Impression: Anemia due to acute blood loss, Incomplete Abdominal pain Qualifiers: Abdominal location: lower abdomen, unspecified Qualified Code(s): R10.30 - Lower abdominal pain, unspecified Disposition: TO HOME OR SELFCARE Is pt being admited?: No Does the pt Need Aspirin: No Condition: Stable Instructions: Spontaneous Miscarriage (ED), Threatened Miscarriage (ED), Abdominal Pain (ED) Additional Instructions: Patient to follow up with primary care in 3-5 days. Patient to follow up with DOUGHMAKER as instructed by Dr. Garcia. Patient to return to ER if condition worsens. Patient to rest. Patient increase water. Patient to start vitamin. Patient to avoid driving. Patient to follow up with DOUGHMAKER in 2-3 days Prescriptions: Methylergonovine [Methergine] 0.2 mg PO Q8HR #3 tablet Referrals: PRIMARY CAREMD [Primary Care Provider] - 3-5 Days Time of Disposition: 15:01
[2018-04-28] MEDS ORDERED: DILAUDID IV ONE (07:40)
[2018-04-28 07:54] LABS: Basophils % (Auto) 0.2 % (0.0-1.8); Eosinophils # (Auto) 0.1 K/mm3 (0.0-0.4); Eosinophils % (Auto) 1.3 % (0.0-4.3); Hematocrit 30.1 % (30.3-42.9); Hemoglobin 9.9 gm/dl (10.1-14.3); Lymphocytes # (Auto) 1.8 K/mm3 (1.2-5.4); Lymphocytes % (Auto) 17.6 % (13.4-35.0); Mean Corpuscular HGB Conc 33 % (30-34); Mean Corpuscular Hemoglobin 26 pg (28-32); Mean Corpuscular Volume 78 fl (79-97); Monocytes # (Auto) 0.7 K/mm3 (0.0-0.8); Monocytes % (Auto) 6.6 % (0.0-7.3); Platelet Count 333 K/mm3 (140-440); Red Blood Count 3.84 M/mm3 (3.65-5.03)
--- NOTE | 2018-04-28 09:23 | Ultrasound Report ---
OB ultrasound: with bleeding. Endovaginal imaging demonstrates an anteverted uterus measuring 5.8 x 5.8 x 10.9 cm. No myometrial masses. The endometrial thickness is approximately 13.5 mm. The endometrium is diffusely inhomogeneous. In the lower uterine segment there is a thickened inhomogeneous complex measuring approximately 3.3 cm. Right ovary measures 2.2 cm and the left 1.9 cm. Both are unremarkable. Impressions: The findings are consistent with an incompletely aborted /hemorrhage.
[2018-04-28] MEDS ORDERED: METHERGINE IM ONE ×2 (09:37→10:30)
[2018-04-28] MEDS ORDERED: NACL 0.9% 1000 ML 1,000 ML IV ONE (09:57)
[2018-04-28] MEDS ORDERED: ZOFRAN IV ONE (10:16)
[2018-04-28] MEDS ORDERED: ZOFRAN ONE (10:20)
--- NOTE | 2018-04-28 13:27 | Discharge Summary ---
Providers - Providers Date of discharge: 04/28/18 Primary care physician: NEW LOVE MD Hospitalization Condition: Good Hospital course: This is a 28-year-old female 4 para 3003 who presented to the ED with vaginal bleeding and pelvic pain. She was previously evaluated at [facility] for the same symptoms last p.m. Patient's history was unclear therefore called her FICTION AND NONFICTION PROSE WRITER at [facility] [place] where I was informed the patient was diagnosed with a 10 week missed on 04/25/2018. She was given 800 g of misoprostol by mouth and instructed to follow up in 1-2 weeks. Sterile speculum exam revealed moderate blood in the vagina with large clot that appears be products of conception protruding from the cervix. The tissue was removed and sent to pathology. Minimal bleeding was noted after this. Patient had been given Methergine IM while awaiting the consultation. Patient appears stable at this time with minimal bleeding will allow home with instructions to follow up Tuesday with her field marketing lead. Disposition: TO HOME OR SELFCARE Core Measure Documentation - Palliative Care Palliative Care/ Comfort Measures: Not Applicable - Core Measures Any of the following diagnoses?: none Exam - Constitutional Vitals: Temp Pulse Resp BP Pulse Ox 98.1 F 114 H 18 123/81 99 04/28/18 06:55 04/28/18 06:55 04/28/18 07:10 04/28/18 11:00 04/28/18 11:00 General appearance: Present: no acute distress - Respiratory Respiratory effort: normal - Abdominal General gastrointestinal: Present: soft, non-tender, non-distended Female genitourinary: Present: other (scant bleeding noted cervix is approximately 1 cm.) Plan Activity: other (no sex.) Weight Bearing Status: Full Weight Bearing Diet: regular Special Instructions: other (call your field marketing lead today to make an appointment for Tuesday for follow-up.) Follow up with: PRIMARY CAREMD [Primary Care Provider] - 3-5 Days
[2018-04-28 14:27] LABS: Basophils % (Auto) 0.3 % (0.0-1.8); Eosinophils % (Auto) 0.4 % (0.0-4.3); Hematocrit 29.3 % (30.3-42.9); Hemoglobin 9.7 gm/dl (10.1-14.3); Lymphocytes # (Auto) 1.7 K/mm3 (1.2-5.4); Lymphocytes % (Auto) 17.2 % (13.4-35.0); Mean Corpuscular HGB Conc 33 % (30-34); Mean Corpuscular Volume 77 fl (79-97); Monocytes # (Auto) 0.6 K/mm3 (0.0-0.8); Monocytes % (Auto) 5.9 % (0.0-7.3); Platelet Count 317 K/mm3 (140-440); Red Blood Count 3.78 M/mm3 (3.65-5.03)
[2018-04-28 14:37] LABS: Mean Corpuscular Hemoglobin 26 pg (28-32)
[2018-04-28 15:36] VITALS: BP 123/72
--- NOTE | 2018-04-28 15:43 | Event Note ---
Date: 04/28/18 Methergine prescription sent to [facility]ogan electronically from my office
== END 2018-04-28 15:35 | disposition home or self-care (01) ==
LOC: ED 06:22
DX: O03.4 Incomplete spontaneous abortion without complication (principal); O99.011 Anemia complicating pregnancy, first trimester; Z3A.11 11 weeks gestation of pregnancy
CPT/HCPCS: 36415; 76817; 84702; 85025; 86850; 86900; 86901; 88305; 96361; 96372; 96374; 96375; 99284; J1170; J2210; J2405; J7030

== ENCOUNTER 2018-10-29 00:46 | Emergency (ER) | payer MEDICAID, SELFPAY ==
--- NOTE | 2018-10-29 01:35 | Emergency Department Report ---
HPI - HPI HPI: Room 5 The patient is a 28-year-old female presenting with a chief complaint of back discomfort and bilateral lower extremity numbness/weakness. The patient states since 02/24/2017 after receiving epidural for her she's had intermittent discomfort in her lower back described as a numbness and warmth. The last several months the patient states these episodes have increased in frequency. This evening the patient states while walking both her legs went numb and felt weak and heavy prompting her to come to the emergency department. Patient denies bowel or bladder incontinence. Patient denies history of fever or recent trauma. She states she has never sought medical attention for the above complaint Location: [See above] Duration: [See above] Quality: [See above] Severity: [See above] Modifying factors: [see above] Context: [see above] Mode of transportation: [not driving] <AKIRA NAGEL - Last Filed: 10/29/18 05:53> <FARIDA ROMERO - Last Filed: 10/29/18 11:00> - General Chief Complaint: Extremity Injury, Lower Time Seen by Provider: 10/29/18 01:10 ED Past Medical Hx - Past Medical History Previous Medical History?: No - Surgical History Past Surgical History?: Yes Additional Surgical History: x3 - Family History Family history: no significant - Social History Smoking Status: Never Smoker Substance Use Type: None (denies illicit drug use) <AKIRA NAGEL - Last Filed: 10/29/18 05:53> <FARIDA ROMERO - Last Filed: 10/29/18 11:00> - Medications Home Medications: Home Medications Medication Instructions Recorded Confirmed Last Taken Type Vit No.130/Iron/Folic 1 each PO DAILY 01/03/17 02/25/17 1 Day Ago History [ Tablet] ~01/02/17 Docusate Sodium [Colace] 100 mg PO BID PRN #60 capsule 02/24/17 Unknown Rx Ferrous Sulfate [Feosol 325 MG tab] 325 mg PO QDAY #30 tablet 02/24/17 Unknown Rx Ibuprofen [Motrin 800 MG tab] 800 mg PO Q8HR PRN #30 tablet 02/24/17 Unknown Rx Lidocain2.5%/Prilocai2.5% [Emla] 2 gm TP ONCE #1 tube 02/24/17 Unknown Rx oxyCODONE /ACETAMINOPHEN [Percocet 1 tab PO Q4HR #30 tab 02/24/17 Unknown Rx 5/325] Naproxen [Naprosyn] 500 mg PO BID #14 tablet 03/29/17 Unknown Rx Methylergonovine [Methergine] 0.2 mg PO Q8HR #3 tablet 04/28/18 Unknown Rx HYDROcodone/ACETAMINOPHEN [Mcdermitt 1 - 2 each PO Q4-6H PRN #14 tablet 10/29/18 Unknown Rx 5-325 Tablet] Ibuprofen [Motrin 800 MG tab] 800 mg PO Q8HR PRN #20 tablet 10/29/18 Unknown Rx ED Review of Systems ROS: Stated complaint: BILATERAL LEG PAIN Other details as noted in HPI Constitutional: denies: fever Eyes: denies: eye pain ENT: denies: throat pain Respiratory: no symptoms reported Cardiovascular: denies: chest pain Endocrine: no symptoms reported Gastrointestinal: denies: abdominal pain Genitourinary: denies: dysuria Musculoskeletal: back pain Neurological: numbness, paresthesias. denies: headache <AKIRA NAGEL - Last Filed: 10/29/18 05:53> ROS: Stated complaint: BILATERAL LEG PAIN Other details as noted in HPI <FARIDA ROMERO - Last Filed: 10/29/18 11:00> Physical Exam - Physical Exam Vital Signs: Vital Signs 10/29/18 00:56 Temperature 98.1 F Pulse Rate 89 Respiratory 18 Rate Blood Pressure 154/96 O2 Sat by Pulse 99 Oximetry Physical Exam: GENERAL: The patient is well-developed well-nourished []. [] HEENT: Normocephalic. Atraumatic. Extraocular motions are intact. Patient has moist mucous membranes. NECK: Supple. Trachea midline CHEST/LUNGS: Clear to auscultation. There is no respiratory distress noted. HEART/CARDIOVASCULAR: Regular. There is no tachycardia. There is no gallop rub or murmur. 2+ DPs bilaterally ABDOMEN: Abdomen is soft, nontender. Patient has normal bowel sounds. There is no abdominal distention. SKIN: There is no rash. There is no edema. There is no diaphoresis. NEURO: The patient is awake, alert, and oriented. The patient is cooperative. 2+ patellar DTRs bilaterally. Patient has sensation to light touch in bilateral lower extremities. The patient has normal speech MUSCULOSKELETAL: There is no evidence of acute injury. <AKIRA NAGEL - Last Filed: 10/29/18 05:53> - Physical Exam Vital Signs: Vital Signs 10/29/18 10/29/18 10/29/18 00:49 00:56 01:05 Temperature 98.1 F Pulse Rate 89 72 Respiratory 18 21 Rate Blood Pressure 154/96 154/96 O2 Sat by Pulse 99 Oximetry 10/29/18 10/29/18 10/29/18 01:15 01:31 01:45 Temperature Pulse Rate 89 73 78 Respiratory 14 17 19 Rate Blood Pressure 154/96 154/96 154/96 O2 Sat by Pulse 100 100 100 Oximetry 10/29/18 10/29/18 10/29/18 02:00 02:15 02:31 Temperature Pulse Rate 88 89 78 Respiratory 22 15 20 Rate Blood Pressure 132/75 132/75 131/72 O2 Sat by Pulse 100 Oximetry 10/29/18 10/29/18 10/29/18 02:45 03:00 03:15 Temperature Pulse Rate 84 92 H 85 Respiratory 23 25 H 25 H Rate Blood Pressure 131/72 132/82 132/82 O2 Sat by Pulse 100 100 Oximetry 10/29/18 10/29/18 10/29/18 03:31 03:45 04:01 Temperature Pulse Rate 88 90 95 H Respiratory 23 21 22 Rate Blood Pressure 132/82 132/82 153/91 O2 Sat by Pulse 99 100 99 Oximetry 10/29/18 10/29/18 04:15 04:31 Temperature Pulse Rate 98 H 94 H Respiratory 20 22 Rate Blood Pressure 153/91 153/91 O2 Sat by Pulse 99 99 Oximetry <FARIDA ROMERO - Last Filed: 10/29/18 11:00> ED Course Vital Signs 10/29/18 00:56 Temperature 98.1 F Pulse Rate 89 Respiratory 18 Rate Blood Pressure 154/96 O2 Sat by Pulse 99 Oximetry - Consultations Consultation #1: 10/29/18 01:24 [facility] transfer line called Consultation #2: 10/29/18 01:52 [place] transfer line called-will call back 10/29/18 02:[address] Walker at [facility] ED. Will call back [facility] transfer line called back and stated that Dr. Walker says she does not accept transfers to the ED and recommends I go through the transfer line to discuss with a specialty such as neurology and/or neurosurgery. [facility] paged 10/29/18 02:45 [facility] transfer line calls back and states they have not yet heard back from the neurologist farm service consultant <AKIRA NAGEL - Last Filed: 10/29/18 05:53> Vital Signs 10/29/18 10/29/18 10/29/18 00:49 00:56 01:05 Temperature 98.1 F Pulse Rate 89 72 Respiratory 18 21 Rate Blood Pressure 154/96 154/96 O2 Sat by Pulse 99 Oximetry 10/29/18 10/29/18 10/29/18 01:15 01:31 01:45 Temperature Pulse Rate 89 73 78 Respiratory 14 17 19 Rate Blood Pressure 154/96 154/96 154/96 O2 Sat by Pulse 100 100 100 Oximetry 10/29/18 10/29/18 10/29/18 02:00 02:15 02:31 Temperature Pulse Rate 88 89 78 Respiratory 22 15 20 Rate Blood Pressure 132/75 132/75 131/72 O2 Sat by Pulse 100 Oximetry 10/29/18 10/29/18 10/29/18 02:45 03:00 03:15 Temperature Pulse Rate 84 92 H 85 Respiratory 23 25 H 25 H Rate Blood Pressure 131/72 132/82 132/82 O2 Sat by Pulse 100 100 Oximetry 10/29/18 10/29/18 10/29/18 03:31 03:45 04:01 Temperature Pulse Rate 88 90 95 H Respiratory 23 21 22 Rate Blood Pressure 132/82 132/82 153/91 O2 Sat by Pulse 99 100 99 Oximetry 10/29/18 10/29/18 04:15 04:31 Temperature Pulse Rate 98 H 94 H Respiratory 20 22 Rate Blood Pressure 153/91 153/91 O2 Sat by Pulse 99 99 Oximetry - Consultations Consultation #3: 10/29/18 10:31 I discussed the patient was doctor Myron neurosurgeon from [place]. He stated that he will not be able to accept the patient without imaging but he advised to talk to the [facility] ER doctor so the patient can get an MRI and then he will be consulted after that. [place] [facility] [facility] transfer center is paging emergency room doctor. 10/29/18 10:58 I discussed the patient was Dr. Wills from the medical service at [facility]. Dr. Wills accepted the patient under the attending physician Dr. Gonzalez. I informed the patient about the transfer. Patient stated that she is okay with that and she is given ago with that. <FARIDA ROMERO - Last Filed: 10/29/18 11:00> ED Medical Decision Making - Lab Data Result diagrams: 10/29/18 02:17 10/29/18 02:17 - Differential Diagnosis neuropraxia, radiculopathy, transverse myelitis, Guillain-Mclaughlin syndrome <AKIRA NAGEL - Last Filed: 10/29/18 05:53> - Lab Data Result diagrams: 10/29/18 02:17 10/29/18 02:17 <FARIDA ROMERO - Last Filed: 10/29/18 11:00> Critical care attestation.: If time is entered above; I have spent that time in minutes in the direct care of this critically ill patient, excluding procedure time. <AKIAR NAGEL - Last Filed: 10/29/18 05:53> Critical Care Time: Yes Critical care time in (mins) excluding proc time.: 45 Critical care attestation.: If time is entered above; I have spent that time in minutes in the direct care of this critically ill patient, excluding procedure time. <FARIDA ROMERO - Last Filed: 10/29/18 11:00> ED Disposition <AKIRA NAGEL - Last Filed: 10/29/18 05:53> Is pt being admited?: No <FARIDA ROMERO - Last Filed: 10/29/18 11:00> Clinical Impression: Back pain, Bilateral leg weakness Disposition: DC/TX-70 ANOTHER TYPE [facility] Condition: Stable Prescriptions: HYDROcodone/ACETAMINOPHEN [Mcdermitt 5-325 Tablet] 1 - 2 each PO Q4-6H PRN #14 tablet PRN Reason: Pain , Severe (7-10) Ibuprofen [Motrin 800 MG tab] 800 mg PO Q8HR PRN #20 tablet PRN Reason: Pain, Moderate (4-6) Referrals: PRIMARY CARE, [Primary Care Provider] - 3-5 Days MAGALY GUAN MD [Staff Physician] - 3-5 Days (Dr Guan is a neurologist. Please follow with him for further evaluation)
[2018-10-29 03:19] LABS: Basophils % (Auto) 0.3 % (0.0-1.8); Eosinophils # (Auto) 0.1 K/mm3 (0.0-0.4); Eosinophils % (Auto) 0.7 % (0.0-4.3); Hemoglobin 9.5 gm/dl (10.1-14.3); Lymphocytes # (Auto) 3.1 K/mm3 (1.2-5.4); Lymphocytes % (Auto) 31.2 % (13.4-35.0); Mean Corpuscular HGB Conc 32 % (30-34); Mean Corpuscular Volume 73 fl (79-97); Monocytes % (Auto) 10.4 % (0.0-7.3); Platelet Count 390 K/mm3 (140-440); Red Blood Count 4.13 M/mm3 (3.65-5.03); Red Cell Distribution Width 17.6 % (13.2-15.2)
[2018-10-29 03:37] LABS: BUN/Creatinine Ratio 22; Blood Urea Nitrogen 11 mg/dL (7-17); Calcium 9.2 mg/dL (8.4-10.2); Hemolysis Index 3
[2018-10-29 11:27] VITALS: BP 128/79
== END 2018-10-29 12:52 | disposition other institution (70) ==
LOC: ED 00:46
DX: M62.81 Muscle weakness (generalized) (principal); M54.9 Dorsalgia, unspecified; Z88.5 Allergy status to narcotic agent
CPT/HCPCS: 36415; 80048; 85025; 99285